=== PATIENT | female | born 1990 | race Caucasian/White ===

== ENCOUNTER 2018-04-12 07:34 | Outpatient (CLI) | payer BC, SELFPAY ==
--- NOTE | 2018-04-12 07:37 | DI.US_ITS ---
SYMPTOM/DIAGNOSIS: RT SIDED PELVIC PAIN, R10.2, LLQ PAIN PELVIC ULTRASOUND: Transabdominal and transvaginal examination was performed. The uterus measures 7.7 cm. long by 3.2 cm. AP by 4.5 cm. transverse. The endometrial stripe is within normal limits at 1.0 cm. There is an intrauterine device which is located in the lower uterine segment of the endometrial canal. No myometrial mass is present. The right ovary measures 2.3 by 1.2 by 1.3 cm. Small follicular cysts are present. There is normal blood flow. No evidence of torsion. The left ovary measures 3.8 by 2 by 2.1 cm. There are small follicular cysts. There is a 1.5 by 1.2 by 1.2 cm., complex left ovarian cyst. This likely reflects a hemorrhagic cyst. There is normal blood flow to the left ovary. No evidence of torsion is seen. There is a small amount of free fluid in the cul-de-sac and left adnexa which is likely physiologic. No hydronephrosis is seen. IMPRESSION: 1. IUD in the lower uterine segment part of the endometrial canal. 2. 1.5 cm. complex left ovarian cyst which may represent a hemorrhagic cyst. Follow up as clinically appropriate.
== END 2018-04-12 07:54 ==
PROVIDERS: PCP Family Medicine; Visit Provider Nurse Practitioner Women's Health
DX: R10.2 Pelvic and perineal pain (principal); N83.01 Follicular cyst of right ovary; N83.12 Corpus luteum cyst of left ovary; Z97.5 Presence of (intrauterine) contraceptive device
CPT/HCPCS: 76830; 76856

== ENCOUNTER 2018-05-16 01:10 | Outpatient (CLI) | payer BC, SELFPAY ==
--- NOTE | 2018-05-16 14:11 | DI.US_ITS ---
SYMPTOM/DIAGNOSIS: WORSENING LLQ PAIN, EVALUATE LT OVARIAN CYST, R10.2 PELVIC ULTRASOUND: Pelvic ultrasound was performed transabdominally and transvaginally. Please see the worksheet for measurements of the pelvic structures. Uterus is unremarkable in appearance with a 3 mm. thick, homogeneous endometrial stripe. No free fluid identified in the cul-de-sac. The ovaries appear normal with an unremarkable follicular appearance. Symmetrical vascular flow noted to the ovaries. Limited scanning of the kidneys is unremarkable. CONCLUSION: Negative pelvic ultrasound. Previously noted complex cyst of the left ovary seen on examination of 04/12/18 has resolved.
== END 2018-05-16 01:30 ==
PROVIDERS: PCP Family Medicine; Visit Provider Nurse Practitioner Women's Health
DX: R10.2 Pelvic and perineal pain (principal)
CPT/HCPCS: 76830; 76856

== ENCOUNTER 2019-01-20 11:20 | Outpatient (REF) | payer SELFPAY ==
[2019-01-23 14:44] LABS: Chlamydia Result Negative (Negative)
[2019-01-23 15:27] LABS: GC Result Negative (Negative)
== END 2019-01-20 11:40 ==
LOC: LBN 11:20
PROVIDERS: PCP Family Medicine; Visit Provider Nurse Practitioner Family
DX: Z11.3 Encounter for screening for infections with a predominantly sexual mode of transmission (principal)
CPT/HCPCS: 87491; 87591

== ENCOUNTER 2019-11-07 02:37 | Outpatient (CLI) | payer SELFPAY ==
[2019-11-07 07:27] LABS: HCT 41.2 % (36.0-46.0); HGB 14.1 g/dL (11.2-15.7); MCH 31.8 pg (27.0-33.0); MCHC 34.2 % (32.0-36.0); MPV 9.9 fL (8.0-11.0); Platelet Count 257 10^3/uL (130-400); RBC 4.43 10^6/uL (3.93-5.22); RDW 11.7 % (11.7-14.6); RDW-SD 40.1 fL; WBC 8.68 10^3/uL (4.4-10.8)
[2019-11-07 09:05] LABS: TSH (W/Ref FT4) 1.39 uIU/mL (0.36-3.74)
[2019-11-08 13:59] LABS: Prolactin 11.8 ng/mL (See Table)
== END 2019-11-07 02:57 ==
PROVIDERS: PCP Family Medicine; Visit Provider Advanced Practice Midwife
DX: N92.0 Excessive and frequent menstruation with regular cycle (principal); Z34.90 Encounter for supervision of normal pregnancy, unspecified, unspecified trimester
CPT/HCPCS: 36415; 85027; 84146; 84443

== ENCOUNTER 2019-11-17 04:49 | Outpatient (CLI) | payer SELFPAY ==
--- NOTE | 2019-11-17 06:45 | DI.US_ITS ---
EXAM: US PELVIS TRANSVAGINAL CLINICAL HISTORY: MENORRHAGIA,N92.0, ? FIBROID, POLYPS,CHECK ENDO STRIPE TECHNIQUE: Transabdominal and transvaginal imaging was performed using standard protocol. COMPARISON: US US PELVIS TRANSVAGINAL from 05/16/2018 FINDINGS: KIDNEYS: Kidneys are symmetric in size. No evidence of renal calculi. No evidence of hydronephrosis. No renal mass or cyst identified. UTERUS: Anteverted. 6.8 x 2.6 x 3.9 cm. Endometrium: 8 millimeters, homogeneous. Myometrium: Unremarkable. Cervix: Unremarkable. OVARIES: Right: Cyst or mass: None. Left: Cyst or mass: None. DOPPLER: Color: Symmetric and uniform flow to both ovaries. No hyperemia. Duplex: Normal ovarian arterial waveforms visualized. CUL-DE-SAC: Free fluid: Small amount of fluid is seen in the cul-de-sac and adjacent to the right ovary. IMPRESSION: 1. Normal-appearing uterus with endometrial stripe within normal limits. 2. Unremarkable bilateral ovaries. DATA REPOSITORY:
== END 2019-11-17 05:09 ==
PROVIDERS: PCP Family Medicine; Visit Provider Advanced Practice Midwife
DX: N92.0 Excessive and frequent menstruation with regular cycle (principal)
CPT/HCPCS: 76830; 76856

== ENCOUNTER 2021-10-10 16:04 | Outpatient (REF) | payer OTHER, SELFPAY ==
--- NOTE | 2021-10-10 14:15 | PAPFT_PTH ---
PATIENT: Chen Vo LOC: N U#:[id number] AGE/SX: 31/F ROOM: RE10/10/[address]: DURAN Singleton : 1990 BED: DIS: 10/10/2021 SPEC #: [id number] RECD: 10/10/21 17:33 STATUS: JUDY ORTEGA #: [id number] CONNOR: 10/10/21 14:[address]: Cassie Mike DEPT: [facility] Cytology RECD BY: Hilary Chavez ENTERED: 10/10/21 17:33 SP TYPE: PAPFT OTHR DR: Michelle Grover Tissues: 1 - CX/ENDOCX FOR PAP SMEARS Procedures: PAP THIN PREP/[facility] Screening Comments: [id number]
== END 2021-10-10 16:05 | disposition home or self-care (01) ==
LOC: LBN 16:04
PROVIDERS: PCP Family Medicine; Visit Provider Nurse Practitioner Family
DX: Z12.4 Encounter for screening for malignant neoplasm of cervix (principal)
CPT/HCPCS: 88142